=== PATIENT | male | born 1960 | race Two or more races ===

== ENCOUNTER 2018-12-19 07:00 | Day surgery (SDC) | payer BC ==
[2018-12-19] MEDS ORDERED: NA CHLORIDE 0.9% 500 ML ONE ×2 (08:34→10:39)
[2018-12-19 09:03] LABS: Absolute Lymphocytes (CBC) 1.3 K/uL (0.7-4.9); Basophils % 0.6 % (0-1.3); Hematocrit 46.4 % (39.6-49.0); Lymphocytes % 21.3 % (15.3-44.8); MPV 8.6 fL (7.6-11.3); RBC Red Blood Cell Count 4.97 M/uL (4.33-5.43)
[2018-12-19 09:09] LABS: Potassium 3.9 mmol/L (3.5-5.1)
[2018-12-19 09:15] LABS: Protime INR 0.92
[2018-12-19] MEDS ORDERED: LIDOCAINE 1% 20 ML MDV ONE (09:29)
[2018-12-19] MEDS ORDERED: MIDAZOLAM HCL 2 MG/2 ML INJ ONE ×4 (10:02→11:07)
[2018-12-19] MEDS ORDERED: ATROPINE SULF 1 MG/10 ML SYR IV ONE (10:03)
[2018-12-19] MEDS ORDERED: FENTANYL CITR 100 MCG/2 ML ONE ×2 (10:03→11:07)
[2018-12-19] MEDS ORDERED: NA CHLORIDE 0.9% 50 ML ONE (10:03)
--- NOTE | 2018-12-19 10:04 | RAD REPORT ---
EXAM DESCRIPTION: Daysi Pinzon (2 Views)12/19/2018 8:31 am CLINICAL HISTORY: Hypertension/preoperative exam COMPARISON: None FINDINGS: The lungs appear clear of acute infiltrate. The heart is normal size IMPRESSION: No acute abnormalities displayed
[2018-12-19] MEDS ORDERED: ASPIRIN 325 MG TAB ONE (11:35)
[2018-12-19] MEDS ORDERED: PRASUGREL (EFFIENT) 10 MG TAB ONE (11:35)
[2018-12-19 13:29] VITALS: BMI 25.0
[2018-12-19] MEDS ORDERED: ACETAMINOPHEN 325 MG TABLET PO PRN ×2 (13:34→14:27)
[2018-12-19] MEDS ORDERED: ZOLPIDEM TARTRATE 5 MG TABLET PO PRN (13:35)
[2018-12-19] MEDS ORDERED: ONDANSETRON 4 MG/2 ML VIAL IV PRN (13:35)
[2018-12-19] MEDS ORDERED: NA CHLORIDE 0.9% 1,000 ML IV SCH (14:00)
[2018-12-19] MEDS ORDERED: NITROGLYCERIN 0.4 MG/TAB SL PRN (14:28)
[2018-12-19 16:55] LABS: Urine Appearance CLEAR; Urine Bilirubin NEGATIVE (NEG); Urine Blood NEGATIVE (NEG); Urine Color YELLOW; Urine Glucose NEGATIVE (NEG); Urine Protein NEGATIVE (NEG); Urine Specific Gravity >=1.030 (1.005-1.030); Urine Urobilinogen 0.2 mg/dL (0.2-1.0)
[2018-12-19 17:04] LABS: Urine Bacteria NONE SEEN /HPF (NONE SEEN); Urine Culture Reflex Order NOT NEEDED; Urine RBC <5 /HPF (NONE SEEN)
[2018-12-19] MEDS ORDERED: FEXOFENADINE 180 MG TAB PO PRN (23:20)
--- NOTE | 2018-12-20 00:40 | OP ---
Surgeon: Ash Monaco MD Electrical Experimental Mechanic: Sadie Mitchell. Patient will be in the hospital overnight and sent home tomorrow on statin, aspirin, Plavix, beta-blo ckers, and I will see him in the office in about 2 weeks. Admitted as an outpatient to the [facility] lab technician for an outpatient procedure. Procedure: Left heart catheterization, selective coronary arteriogram, primary stent of the proximal LAD. Description Of Procedure: Mr. Cleveland is 58, has multiple cardiac risk factors. Had a positive str ess test at our office yesterday with anterior ischemia, ST depression, and chest pain. He was broug ht into the [facility] lab technician today as an outpatient, given 4 mg of Versed and 50 of fentanyl for sedation. R ight common femoral artery access obtained through 6-Portuguese sheath. Angiography there showed plaquin g and tortuosity. Angio-Seal was used to close the case. Román catheter 6-Portuguese JL4 was used for the left main injection. He was found to have a 99% proximal LAD extending past the first diagonal, normal circ, normal RCA. JR4 catheters were used for the RCA. An XB 3.0 with side hole guide was u sed for the cannulation of the left main. A [place] wire 0.14 extra-support and extra-length was used to cross the lesion in the LAD. A 3.0 x 16 Synergy stent was deployed at 14 atmosphere with 0% resi dual. The patient tolerated the procedure well. There were no complications. Blood loss was 5 cc. Patient received Angiomax, 60 mg of Effient, and aspirin during the procedure. Final Diagnosis: Coronary artery disease, status post successful stent of the LAD. Anesthesia: Total conscious sedation was 45 minutes. ROWENA/MODL Voice ID: [id number] Report ID: [id number]
[2018-12-20 05:47] LABS: Potassium 3.9 mmol/L (3.5-5.1)
[2018-12-20 05:54] LABS: Absolute Lymphocytes (CBC) 1.7 K/uL (0.7-4.9); Basophils % 0.3 % (0-1.3); Hematocrit 42.5 % (39.6-49.0); Lymphocytes % 19.1 % (15.3-44.8); MPV 8.1 fL (7.6-11.3); RBC Red Blood Cell Count 4.63 M/uL (4.33-5.43)
[2018-12-20 07:53] VITALS: O2SAT 99
[2018-12-20 08:01] VITALS: BP 138/74
[2018-12-20] MEDS ORDERED: FENOFIBRATE 160 MG TAB PO SCH (09:00)
[2018-12-20] MEDS ORDERED: ASPIRIN 81 MG CHEWABLE TABLET PO SCH (09:00)
[2018-12-20] MEDS ORDERED: MONTELUKAST 10 MG TAB PO SCH ×2 (09:00)
[2018-12-20] MEDS ORDERED: CLOPIDOGREL 75 MG TABLET PO SCH (09:00)
[2018-12-20] MEDS ORDERED: [UNRECOGNIZED DRUG - OTHER] IH SCH (09:00)
[2018-12-20] MEDS ORDERED: VALSARTAN 80 MG TAB PO SCH (09:00)
[2018-12-20] MEDS ORDERED: NASONEX IH SCH (09:00)
[2018-12-20 09:04] VITALS: TEMP 98
--- NOTE | 2018-12-20 11:50 | PN ---
Date of Progress Note: 12/20/2018 Mr. Cleveland is A 58-year-old male, who was admitted yesterday as an outpatient to have a heart deborah terization for chest pain and positive stress test. His catheterization revealed 90% plus proximal L AD stenosis. A 3.0 x 16 Synergy stent was placed at 14 atmosphere with 0% residual. No complication s. Overnight, the patient had no telemetry changes. He has no chest pain. His right groin is intac t. There is no hematoma. Ulcers are present and adequate bilaterally. I will send Mr. Cleveland jeramie e today on his home medications plus Plavix 75 mg daily for 6 months. He is on aspirin. He is on fe nofibrate. He is intolerant to statins. He has an appointment with he is going to have a carotid Doppler and seen Dr. Arriola. Dr. Arriola is considering on him. I think with his coronary artery disease, this should be more of a pressing issue. ROWENA/ANAYELI Voice ID: [id number] Report ID: [id number]
== END 2018-12-20 09:27 | disposition home or self-care (01) ==
LOC: CCL 07:00 → 4TH 12:13 → CCL 12-20 09:27
DX: I25.10 Atherosclerotic heart disease of native coronary artery without angina pectoris (principal); I10 Essential (primary) hypertension; E78.2 Mixed hyperlipidemia
CPT/HCPCS: 85025 ×2; 81001; 80048 ×2; 36415; 85610; 80061; 82962 ×2; 85347 ×2; 85730; 71046; 92928; 93454; C1893; C1725; C1877 ×2; J2250 ×4; J3010; J0583